=== PATIENT | female | born 1990 | race African-American/Black ===

== ENCOUNTER 2024-03-15 22:11 | Emergency (ER) | payer SELFPAY ==
[2024-03-16] MEDS: Acetaminophen 325 MG Tab PO ONE (01:32)
[2024-03-16] MEDS: Ketorolac 60 MG/2 ML SDV IM ONE (01:32)
== END 2024-03-16 04:00 | disposition home or self-care (01) ==
LOC: JD.ED 22:11
DX: M25.511 Pain in right shoulder (principal); M25.112 Fistula, left shoulder; M25.551 Pain in right hip; M25.531 Pain in right wrist; Z86.16 Personal history of COVID-19; W19.XXXA Unspecified fall, initial encounter; Y99.0 Civilian activity done for income or pay; Y92.89 Other specified places as the place of occurrence of the external cause
CPT/HCPCS: 73030-26-LT; 73030-26-RT; 73030-LT; 73030-RT; 73110-26-RT; 73110-RT; 73502-26-RT; 73502-RT; 96372; 99283; A9270-GY; J1885